=== PATIENT | female | born 1960 | race Caucasian/White ===

== ENCOUNTER 2021-03-31 11:32 | Emergency (ER) | payer SELFPAY ==
[~2021-03-31 11:32] MED LIST: CIPRO500 MG PO; IBUPROFEN600 MG PO
== END 2021-03-31 15:03 | disposition home or self-care (01) ==
LOC: ER1 11:32
DX: S09.90XA Unspecified injury of head, initial encounter (principal); W22.8XXA Striking against or struck by other objects, initial encounter; Y92.219 Unspecified school as the place of occurrence of the external cause
CPT/HCPCS: 99283

== ENCOUNTER → 2022-03-29 | Outpatient (CLI) | payer BC | LOC: KOH-I 14:30 | DX: Z87.891 Personal history of nicotine dependence (principal); R91.8 Other nonspecific abnormal finding of lung field | CPT/HCPCS: 71271 ==

== ENCOUNTER → 2022-05-10 | Outpatient (CLI) | payer BC | LOC: HEART 5 08:15 | DX: I25.10 Atherosclerotic heart disease of native coronary artery without angina pectoris (principal) | CPT/HCPCS: 78452; A9502 ==